=== PATIENT | male | born 1935 | race Caucasian/White ===

== ENCOUNTER 2020-09-22 05:25 | Inpatient (IN) | payer MEDICARE ==
[2020-09-22] VITALS (15 sets, daily range): BP systolic 39–179; BP diastolic 22–109
[~2020-09-22] VITALS: Ht 182.9 cm; Wt 83.5 kg
--- NOTE | 2020-09-22 05:26 | NUR ---
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 filed room air 02 70%, placed on cpap per ra improved to 90% , pt unable to answer questions at this time, noted tachypnic, diaphoretic. piv started, blood collected, ed md at bedside for eval
[2020-09-22] MEDS ORDERED: ACETAMINOPHEN 650 MG/SUPP.RECT RC ONE (05:34)
[2020-09-22 05:43] LABS: BASOPHILS % (AUTO) 0.2 % (0.0-2.0); EOSINOPHILS % (AUTO) 0.1 % (0.0-6.0); HEMATOCRIT 55 % (39-51); HEMOGLOBIN 18.1 g/dL (13.5-17.5); LYMPHOCYTES % (AUTO) 25.1 % (20.0-44.0); MEAN CORPUSCULAR HGB CONC 33 g/dl (31.0-36.0); MEAN CORPUSCULAR VOLUME 96 fL (80-96); MONOCYTES # (AUTO) 0.8 /CMM (0.1-1.30); NEUTROPHILS # (AUTO) 11.2 /CMM (1.8-8.9); NEUTROPHILS % (AUTO) 69.6 % (43.0-81.0); PLATELET COUNT (AUTO) 175 /CMM (150-450); RED BLOOD CELL COUNT(AUTO) 5.75 MIL/uL (4.5-6.0); WHITE BLOOD COUNT (AUTO) 16.1 K/uL (4.3-11.0)
--- NOTE | 2020-09-22 05:48 | NUR ---
pt placed on bipap per ed md order
--- NOTE | 2020-09-22 05:49 | NUR ---
pt noted with fever, cooling measure started
[2020-09-22 05:54] LABS: ABG BASE EXCESS -10.5 mmol/L; ABG OXYGEN SATURATION 89.9 % (92.0-98.5); ABG PCO2 27.5 mmHg (35.0-45.0); ABG PH 7.313 (7.350-7.450); ABG PO2 63.6 mmHg (75.0-100.0); AaDO2 621.9 mmHg; COHb 0.5 % (0.5-1.5); MetHb 0.5 % (0.0-1.5); SITE, ABG Right Radial; VENT MODE, BG ST 20/8 R20 100%
[2020-09-22 05:58] LABS: CALCIUM, SERUM 9.4 mg/dL (8.5-10.1); CARBON DIOXIDE 20 mmol/L (21-32); CHLORIDE 99 mmol/L (98-107); GLUCOSE 174 mg/dL (74-106); POTASSIUM 3.7 mmol/L (3.5-5.1); SODIUM SERUM 138 mmol/L (136-145); UREA NITROGEN, BLOOD 27 mg/dL (7-18)
[2020-09-22] MEDS ORDERED: PIPERACILLIN /TAZOBACTAM 3.375 G in IV D5W 50 ML IV ONE (06:00)
[2020-09-22] MEDS ORDERED: VANCOMYCIN HCL 1.25 GM in IV D5W 260 ML IV ONE (06:00)
[2020-09-22] MEDS ORDERED: NOREPINEPHRINE 4 MG/4 ML AMPUL IV ONE (06:03)
[2020-09-22] MEDS: ACETAMINOPHEN 650 MG/SUPP.RECT RC PRN (06:08)
[2020-09-22 06:10] LABS: ALANINE AMINOTRANSFERASE 27 U/L (12-78); ALBUMIN 3.9 g/dL (3.4-5.0); ALKALINE PHOSPHATASE 110 U/L (46-116); ASPARTATE AMINOTRANSFERASE 37 U/L (15-37); B-TYPE NATRIURETIC PEPTIDE 4379 PG/ML (0-125); BILIRUBIN,DIRECT 0.8 mg/dL (0.0-0.2); BILIRUBIN,TOTAL 2.7 mg/dL (0.2-1.0); TOTAL PROTEIN, SERUM 8.4 g/dL (6.4-8.2)
--- NOTE | 2020-09-22 06:11 | NUR ---
RT pt placed on bipap per md order. pt found on ems cpap, on 15 L. resp distress. rate in the 50s. placed on bipap. settings: 20/8 r 20 100%. bipap plugged in to red outlet. ambu bag at [facility]. abg done to assess baseline. abg results: ph 7.31 co2 27 o2 63 hco3 13 preparing to intubate.
[2020-09-22] MEDS: NOREPINEPHRINE 8 MG in IV NS 0.9% 242 ML IV PRN ×5 (06:18→17:19)
[2020-09-22] MEDS ORDERED: ONDANSETRON HCL/PF 4 MG/2 ML VIAL IVP PRN (06:30)
[2020-09-22] MEDS ORDERED: NOREPINEPHRINE 8 MG in IV NS 0.9% 250 ML IV ONE (06:30)
[2020-09-22] MEDS ORDERED: ETOMIDATE 2 MG/ML VIAL IV ONE (06:30)
[2020-09-22] MEDS ORDERED: ROCURONIUM BROMIDE 100 MG/10 ML VIAL IV ONE (06:30)
[2020-09-22] MEDS ORDERED: Z GUARD REMEDY 2 OZ OINT TP PRN (06:30)
[2020-09-22] MEDS ORDERED: DEXAMETHASONE SOD PHOSPHATE 10 MG/ML VIAL IV ONE (06:30)
[2020-09-22] MEDS ORDERED: MAGNESIUM HYDROXIDE 30 ML UDC PO PRN (06:30)
[2020-09-22] MEDS ORDERED: IV D5/0.45 NACL 1,000 ML IV PRN (06:30)
[2020-09-22] MEDS ORDERED: HEPARIN SODIUM, PORCINE 5000 UNITS/1 ML VIAL SQ SCH ×2 (06:30→12:00)
[2020-09-22] MEDS ORDERED: MORPHINE SULFATE INJ 2 MG/ML DISP.SYRIN IV PRN (06:30)
--- NOTE | 2020-09-22 06:45 | NUR ---
RT pt intubated post abg. vent settings: AC 22 550 100% +5. ett size 7.5 25@lip. vent plugged in to red outlet, ambu bag at [facility]. lung sounds clear throughout. no secretions via ett suctioned. unable to obtain spo2. notified tan robison.
[2020-09-22] MEDS ORDERED: IV NS 0.9% 500 ML BAG IV ONE (07:00)
--- NOTE | 2020-09-22 07:00 | NUR ---
RSI INITIATED ETOMIDATE 20MG AND ROCORUNIUM 70MG GIVEN IVP UNDER DIRECT SUPERVISION OF ER . 0628; 7.5 ET TUBE 25@LIP, PLACED BY DR. DELATORRE WITH RT, PLACEMENT CHECKED, XRAY ORDERED OG TUBE PLACED 65CM AT THE LIP F/C PLACED, 16F, DRAINING CLEAR YELLOW URINE
--- NOTE | 2020-09-22 07:02 | NUR ---
LAB CALLED REGARDING (+) COVID RESULT.
--- NOTE | 2020-09-22 07:10 | NUR ---
RIGHT IJ 3 LUMEN CENTRAL LINE PLACED BY DR. DELATORRE
[2020-09-22] MEDS ORDERED: PROPOFOL 100 ML ONE (07:12)
[2020-09-22] MEDS: PROPOFOL 100 ML IV PRN ×2 (07:18→23:26)
[2020-09-22 07:23] LABS: C-REACTIVE PROTEIN 16.1 mg/dL (0.0-0.9)
[2020-09-22] MEDS ORDERED: DEXAMETHASONE SOD PHOSPHATE 10 MG/ML VIAL ONE (07:24)
--- NOTE | 2020-09-22 07:31 | NUR ---
REPORT GIVEN TO JACE LIMA FOR SUKUMAR
[2020-09-22 07:33] LABS: BILIRUBIN,URINE NEGATIVE (NEGATIVE); COLOR,URINE YELLOW (YELLOW); LEUKOCYTE ESTERASE ,URINE TRACE (NEGATIVE); NITRITE, URINE NEGATIVE (NEGATIVE); PH,URINE 5.5 (5.0-8.0); PROTEIN,URINE TRACE mg/dl (NEGATIVE); UGLUCOSE NEGATIVE (NEGATIVE); UROBILINOGEN,URINE 0.2 EU/dL (0.2)
[2020-09-22 07:43] LABS: D-DIMER > 35.20 mg/L(FEU (0.17-0.50)
[2020-09-22 08:04] LABS: ABG BASE EXCESS -13.1 mmol/L; ABG PCO2 31.6 mmHg (35.0-45.0); ABG PH 7.231 (7.350-7.450); ABG PO2 68.6 mmHg (75.0-100.0); AaDO2 612.8 mmHg; COHb 0.2 % (0.5-1.5); MetHb 0.5 % (0.0-1.5); O2Hb 89.4 % (94.0-97.0); SITE, ABG Right Radial; VENT MODE, BG AC 22 550 100% +5
[2020-09-22] MEDS ORDERED: PIPERACILLIN /TAZOBACTAM 3.375 G VIAL IV ONE ×2 (08:13→13:04)
[2020-09-22 08:16] LABS: BACTERIA,URINE None seen /HPF (None Seen); SQUAMOUS EPITHELIAL CELL,UR Few /HPF (None Seen)
[2020-09-22] MEDS ORDERED: AMIO200T5 PO (08:26)
[2020-09-22] MEDS ORDERED: APIX5TAB PO (08:26)
[2020-09-22] MEDS ORDERED: ATOR20TA PO (08:26)
[2020-09-22] MEDS ORDERED: ALLO100T PO (08:26)
[2020-09-22] MEDS ORDERED: METO-357 PO (08:26)
[2020-09-22] MEDS ORDERED: BENA5TAB5 PO (08:26)
--- NOTE | 2020-09-22 09:41 | NUR ---
LACTIC ACID OF 5.8, MADE SOHAIL AWARE. AWAITING NEW ORDERS
[2020-09-22 09:53] LABS: MAGNESIUM 2.1 mg/dL (1.8-2.4)
[2020-09-22 10:03] LABS: THYROID STIMULATING HORMONE 3.007 uIU/mL (0.358-3.74)
--- NOTE | 2020-09-22 10:52 | NUR ---
SPOKE TO , [place], PER , PATIENT ON ELIQUIS 5MG BID, MADE SOHAIL AWARE. AWAITING FURTHER ORDER
--- NOTE | 2020-09-22 11:02 | NUR ---
RT AT BEDSIDE, CHANGED VENT SETTINGS TO AC 22, 02 100%, VT 550, PEEP 0.
[2020-09-22] MEDS ORDERED: APIXABAN 5 MG TABLET PO SCH (12:30)
[2020-09-22] MEDS ORDERED: APIXABAN 5 MG TABLET ONE (13:04)
[2020-09-22] MEDS: PIPERACILLIN /TAZOBACTAM 3.375 G in IV D5W 50 ML IV SCH ×2 (13:20→18:20)
--- NOTE | 2020-09-22 19:04 | NUR ---
CONSENT FOR COVID 19 PLASMA ALLOWED BY [place] LEONARD THROUGH PHONE. WITNESSED BY [place] BHATIA RN.
--- NOTE | 2020-09-22 19:16 | NUR ---
ASSUMED CARE. REPORT RECEIVED FROM AM SHIFT JACE LIMA. NOTED PT AWAKE ON DIPRIVAN DRIP 10MCG/KG/MIN INCREASED FOR SEDATION. LEVOPHED DRIP 0.5MCG/KG/MIN. PT TOLERATTING CURRENT VENT SETTING: AC-28, TV-550, FIO2-100%, PEEP-8, NO ACUTE DISTRESS NOTED, RESP EVEN AND UNLABORED. NOTED PT WITH OGT IN PLACE, NGT CONNECTED TO SUCTION WITH TEA COLOR GASTRIC JUICES NOTED. F/C 16FR IN PLACE AND DRAINING CLEAR YELLOW URINE. PT ON BILATERAL WRIST RESTRAINTS IN PLACE TO PREVENT PT FROM PULLING OUT ET-TUBE. PT REMAINS ON CARDIAC MONITORING, CONTINUOUS POX. WILL CONTINUE TO MONITOR PT CLOSELY
--- NOTE | 2020-09-22 19:24 | NUR ---
PLASMA AVAILABLE FOR THAWING PER MAIN LAB.
--- NOTE | 2020-09-22 19:47 | NUR ---
REPORT GIVEN TO ED RN FOR SUKUMAR
[2020-09-22] MEDS ORDERED: APIXABAN 2.5 MG TABLET PO SCH (20:00)
--- NOTE | 2020-09-22 20:45 | NUR ---
REPORT CALLED TO ACOUSTICAL INSTALLERJACE CARROLL. WILL TRANSPORT PT VIA ACLS PROTOCOL.
--- NOTE | 2020-09-22 20:49 | NUR ---
plasma started@2044, consents signed, verified with 2nd RN.
[2020-09-22] MEDS: NOREPINEPHRINE 32 MG in IV NS 0.9% 218 ML IV PRN (21:25)
--- NOTE | 2020-09-22 21:26 | NUR ---
pt transoported to icu
--- NOTE | 2020-09-22 21:30 | NUR ---
RT PT TRANSPORTED [facility] ICU 253. VENT PLUGGED INTO RED OUTLET, O2 CONNECTED TO WALL CONNECTION. WITH ALARMS ON AND AUDIBLE AND AMBU BAG AT BEDSIDE.
--- NOTE | 2020-09-22 21:40 | NUR ---
EMS MANAGER: RECEIVED S/P INTUBATED FROM ED. SEDATED ON 40MCG/KG/MIN, LEVOPHED AT MAX. DOSE RATE OF 1MCG/KG/MIN AND ONGOING CONVALESCENT PLASMA TRANSFUSION. VENT SETTINGS ORDERED. V-PACED ON THE WEB PRESS OPERATOR. HYPOTHERMIC AND EDGARDO HUGGER WILL BE APPLIED. F/C INTACT AND DRAINING ELLIE COLORED URINE TO GRAVITY. BILAT. SOFT WRIST RESTRAINTS IN PLACE TO PREVENT SELF EXTUBATION. WILL CONTINUE TO MONITOR.
[2020-09-22] MEDS ORDERED: PHENYLEPHRINE 10 MG/ML VIAL ONE (21:54)
[2020-09-22] MEDS: ATORVASTATIN 40 MG TABLET PO SCH (22:00)
[2020-09-22] MEDS: PHENYLEPHRINE 100 MG in IV NS 0.9% 240 ML IV PRN (22:04)
--- NOTE | 2020-09-22 22:30 | NUR ---
GRAIN MILLER HELPER: CONVALESCENT PLASMA TRANSFUSION COMPLETED WT NO ADVERSE REACTION. WILL CONTINUE TO MONITOR.
[2020-09-23] VITALS (96 sets, daily range): BP systolic 68–167; BP diastolic 34–97
[2020-09-23] MEDS ORDERED: PIPERACILLIN /TAZOBACTAM 3.375 G VIAL IV ONE ×2 (00:40→05:03)
[2020-09-23] MEDS: PIPERACILLIN /TAZOBACTAM 3.375 G in IV D5W 50 ML IV SCH ×4 (00:45→17:14)
[2020-09-23] MEDS ORDERED: NOREPINEPHRINE 4 MG/4 ML AMPUL IV ONE ×2 (03:52→03:55)
[2020-09-23] MEDS: NOREPINEPHRINE 32 MG in IV NS 0.9% 218 ML IV PRN ×3 (04:07→18:20)
[2020-09-23] MEDS: PROPOFOL 100 ML IV PRN ×5 (04:09→21:18)
[2020-09-23 05:06] LABS: BASOPHILS % (AUTO) 0.1 % (0.0-2.0); HEMATOCRIT 52 % (39-51); HEMOGLOBIN 17.4 g/dL (13.5-17.5); LYMPHOCYTES # (AUTO) 0.7 /CMM (0.8-4.8); LYMPHOCYTES % (AUTO) 3.4 % (20.0-44.0); MEAN CORPUSCULAR HGB CONC 34 g/dl (31.0-36.0); MEAN CORPUSCULAR VOLUME 96 fL (80-96); MONOCYTES # (AUTO) 1.3 /CMM (0.1-1.30); MONOCYTES % (AUTO) 5.9 % (2.0-12.0); NEUTROPHILS # (AUTO) 19.3 /CMM (1.8-8.9); NEUTROPHILS % (AUTO) 90.6 % (43.0-81.0); PLATELET COUNT (AUTO) 174 /CMM (150-450); RED BLOOD CELL COUNT(AUTO) 5.44 MIL/uL (4.5-6.0); WHITE BLOOD COUNT (AUTO) 21.3 K/uL (4.3-11.0)
[2020-09-23 05:16] LABS: CALCIUM, SERUM 8.6 mg/dL (8.5-10.1); CARBON DIOXIDE 18 mmol/L (21-32); CHLORIDE 103 mmol/L (98-107); CREATININE 2.6 mg/dL (0.6-1.3); GLUCOSE 226 mg/dL (74-106); POTASSIUM 4.2 mmol/L (3.5-5.1); SODIUM SERUM 137 mmol/L (136-145); UREA NITROGEN, BLOOD 44 mg/dL (7-18)
[2020-09-23 06:00] LABS: FERRITIN 4208 ng/mL (8-388)
--- NOTE | 2020-09-23 07:00 | NUR ---
SENIOR ENVIRONMENTAL PRACTICE LEADER: STILL ON DIPRIVAN AT 40MCG/KG/MIN. LEVOPHED AT 0.8MCG/KG/MIN, AND D5 1/2 NS AT 50ML/HR. MINIMAL BLEEDING NOTED DURING TRACHEAL SUCTIONING. ENDORSED TO JACE THAKUR TO OBTAIN ORDER FROM MD FOR NPO EXCEPT MEDS IF WANTS TO CONTINUE TO GIVE NON-IV MEDS PARTICULARLY ELIQUIS.
[2020-09-23] MEDS: VANCOMYCIN 1 GM in IV D5W 250 ML IV SCH (08:14)
[2020-09-23] MEDS: AMIODARONE HCL 200 MG TABLET PO SCH (08:44)
[2020-09-23] MEDS: DEXAMETHASONE SOD PHOSPHATE 10 MG/ML VIAL IV SCH (08:44)
[2020-09-23] MEDS: ALLOPURINOL 100 MG TABLET PO SCH ×3 (08:44→17:06)
[2020-09-23] MEDS: APIXABAN 5 MG TABLET PO SCH ×2 (08:45→17:00)
[2020-09-23] MEDS: METOPROLOL SUCCINATE 50 MG TAB.SR.24H PO SCH (08:49)
[2020-09-23 09:29] LABS: ABG BASE EXCESS -9.1 mmol/L; ABG OXYGEN SATURATION 99.5 % (92.0-98.5); ABG PCO2 29.9 mmHg (35.0-45.0); ABG PH 7.325 (7.350-7.450); ABG PO2 195.3 mmHg (75.0-100.0); AaDO2 487.8 mmHg; COHb 0.3 % (0.5-1.5); MetHb 0.3 % (0.0-1.5); O2Hb 98.9 % (94.0-97.0); PEEP,BG 8 cm H2O; SITE, ABG Left Femoral; VT, ABG 550 mL
[2020-09-23] MEDS: ACETAMINOPHEN 650 MG/SUPP.RECT RC PRN ×2 (12:09→18:19)
--- NOTE | 2020-09-23 17:00 | NUR ---
RN NOTES HELD PM ELIQUIS DUE TO SIGNS OF BLEEDING, NOTED WITH BLEEDING DURING SUCTIONING. WILL CONTINUE TO MONITOR.
[2020-09-23] MEDS: PHENYLEPHRINE 100 MG in IV NS 0.9% 240 ML IV PRN (17:40)
--- NOTE | 2020-09-23 19:00 | NUR ---
RECEIVED PT ON BED SEDATED ON ETT/VENT SETTING PER FIO2 100% SPO2 88% FULL CODE, TELE MONITOR READS VPACING 100%, HR 80'S HAVE RIGHT INTRAJUGULAR VEIN 3 LUMEN CENTRAL LINE WITH ONGOING DIPRIVAN @ 50MCG/KG/MIN, RENEE @ 1MCG/KG/MIN, LEVO @ 1MCG/KG/MIN INFUSING WELL WITH FOSTER CATHETER WITH YELLOW URINE DRAINING VIA GRAVITY HAVE RIGHT NOSTRILS NGTUBE CONNECTED TO SUCTION WITH BLACK COLOR RESIDUAL NOTED ALSO HAVE OGTUBE PLACEMENT WAS CHECKED, BED ON LOWEST POSITION AND LOCKED SIDE RAILS UP X2 WILL CONT TO MONITOR Addendum: 09/23/20 at 2347 by HARRY JORGENSEN RN PT TEMP [address]
--- NOTE | 2020-09-23 20:32 | NUR ---
RECEIVED PT INTUBATED 7.5 ETT SECURED AT 25CM LIP LINE. SX'D LARGE AMT OF FROTHY TINGED SECRETIONS. VENT ALARMS SET AND AUDIBLE. ETT CUFF CHECKED. CONTINUE TO MONITOR. Addendum: 09/23/20 at 2034 by MEL BAUER RT Amended: Links added.
[2020-09-23] MEDS ORDERED: VASOPRESSIN INJ 20 UNIT/ML VIAL ONE ×2 (21:26→22:07)
[2020-09-23] MEDS: VASOPRESSIN INJ 40 UNIT in IV NS 0.9% 38 ML IV PRN (21:33)
--- NOTE | 2020-09-23 21:45 | NUR ---
PT SBP IS ON LOW 80'S INFORMED ANITHA MANRIQUEZ SIMULATION ENGINEER ASSISTANT PROFESSOR OF MATHEMATICS WITH ORDER TO START VASOPRESSIN TO TITRATE PER PROTOCOL AND CONTACT FAMILY AND UPDATE THE FAMILY ABOUT THE SITUATION OF THE PT NOTED AND CARRIED OUT
[2020-09-23] MEDS: ATORVASTATIN 40 MG TABLET PO SCH (21:47)
--- NOTE | 2020-09-23 22:02 | NUR ---
CHARGE NURSE ED RN TALK TO [place] AND DISCUSS THE SITUATION OF THE PT AND SHE AGREE TO CHANGE THE CODE STATUS FROM FULL CODE TO DO NOT RESUSCITATE STATUS, FOLLOW NEEDS OF THE PT AND CHANGE THE CODE STATUS TO DO NOT RESUSCITATE
[2020-09-23] MEDS ORDERED: MEROPENEM 500 MG VIAL IV ONE (23:23)
--- NOTE | 2020-09-23 23:47 | NUR ---
PT ON BED SEADTED WITH DIPRIVAN 70MCG/KG/MIN ON ETT/VENT SETTING PER MD SPO2 ON 80'S FIO2 100% ON LEVOPHED 1 MCG/KG/MIN RENEE 2MCG/KG/MIN VASOPRESSIN 0.04 UNIT/MIN WITH BP 76/52 TEMP [address],PT IS DNR, WILL CONT TO MONITOR
[2020-09-24] VITALS (81 sets, daily range): BP systolic 58–123; BP diastolic 21–86
[2020-09-24] MEDS ORDERED: MEROPENEM 500 MG in IV NS 0.9% 50 ML IV ONE ×2
[2020-09-24] MEDS: PROPOFOL 100 ML IV PRN ×9 (00:07→20:45)
[2020-09-24] MEDS: NOREPINEPHRINE 32 MG in IV NS 0.9% 218 ML IV PRN ×4 (00:19→18:42)
[2020-09-24] MEDS: ACETAMINOPHEN 650 MG/SUPP.RECT RC PRN (00:31)
[2020-09-24] MEDS: VASOPRESSIN INJ 40 UNIT in IV NS 0.9% 38 ML IV PRN (01:52)
[2020-09-24] MEDS ORDERED: PHENYLEPHRINE 10 MG/ML VIAL ONE (01:58)
[2020-09-24] MEDS: PHENYLEPHRINE 100 MG in IV NS 0.9% 240 ML IV PRN ×4 (02:03→21:22)
[2020-09-24 05:19] LABS: BASOPHILS % (AUTO) 0.1 % (0.0-2.0); HEMATOCRIT 54 % (39-51); HEMOGLOBIN 17.4 g/dL (13.5-17.5); LYMPHOCYTES % (AUTO) 4.2 % (20.0-44.0); MEAN CORPUSCULAR HGB CONC 32 g/dl (31.0-36.0); MEAN CORPUSCULAR VOLUME 99 fL (80-96); MONOCYTES # (AUTO) 0.6 /CMM (0.1-1.30); MONOCYTES % (AUTO) 2.7 % (2.0-12.0); PLATELET COUNT (AUTO) 144 /CMM (150-450); RED BLOOD CELL COUNT(AUTO) 5.44 MIL/uL (4.5-6.0); WHITE BLOOD COUNT (AUTO) 22.6 K/uL (4.3-11.0)
--- NOTE | 2020-09-24 05:28 | NUR ---
PT STILL ON ETT/VENT SETTING PER MD WITH FIO2 100% SPO2 70% PT ON DNR, MD IS AWARE THAT BP AND SPO2 IS DROPPING WITH NO NEW ORDER BECAUSE PT ALREADY ON 3 PRESSOR AND ON MAX RATE ALREADY, WILL CONT TO MONITOR THE PT
[2020-09-24 05:37] LABS: ALANINE AMINOTRANSFERASE 474 U/L (12-78); ALBUMIN 2.5 g/dL (3.4-5.0); ALKALINE PHOSPHATASE 88 U/L (46-116); ASPARTATE AMINOTRANSFERASE 373 U/L (15-37); BILIRUBIN,TOTAL 1.5 mg/dL (0.2-1.0); CALCIUM, SERUM 8.1 mg/dL (8.5-10.1); CARBON DIOXIDE 16 mmol/L (21-32); CHLORIDE 101 mmol/L (98-107); CREATININE 4.9 mg/dL (0.6-1.3); GLUCOSE 130 mg/dL (74-106); MAGNESIUM 2.3 mg/dL (1.8-2.4); POTASSIUM 5.3 mmol/L (3.5-5.1); SODIUM SERUM 138 mmol/L (136-145); TOTAL PROTEIN, SERUM 6.9 g/dL (6.4-8.2); UREA NITROGEN, BLOOD 59 mg/dL (7-18)
[2020-09-24 05:49] LABS: PHOSPHORUS 8.4 mg/dL (2.5-4.9)
[2020-09-24] MEDS ORDERED: NOREPINEPHRINE 4 MG/4 ML AMPUL IV ONE (06:12)
--- NOTE | 2020-09-24 07:12 | NUR ---
MANAGEMENT ACCOUNTS MANAGER NOTES RECEIVED PT ON BED SEDATED ON ETT/VENT SETTING PER MD FIO2 100% SPO2 78%, DNR, TELE MONITOR READS VPACING 100%, HR 70'S HAVE RIGHT INTRAJUGULAR VEIN 3 LUMEN CENTRAL LINE WITH ONGOING DIPRIVAN @ 70MCG/KG/MIN, RENEE @ 3MCG/KG/MIN, LEVO @ 1MCG/KG/MIN, VASOPRESSIN @0.04 MCG/KG/MIN, INFUSING WELL WITH FOSTER CATHETER WITH YELLOW URINE DRAINING VIA GRAVITY HAVE RIGHT NOSTRILS NGTUBE CONNECTED TO SUCTION WITH BLACK COLOR RESIDUAL NOTED ALSO HAVE OGTUBE PLACEMENT WAS CHECKED, BED ON LOWEST POSITION AND LOCKED SIDE RAILS UP X2 WILL CONT TO MONITOR.
--- NOTE | 2020-09-24 07:30 | NUR ---
PT ON BED STILL ON ETT/VENT FIO2 100% SPO2 ON HIGH 70'S SUCTION WAS DONE, TEMP 99.[address] SBP ON 80'S STILL ON MAX PRESSOR OF LEVOPHED 1MCG/KG/MIN, RENEE 3 MCG/KG/MIN VASOPRESSIN 0.04UNIT/MIN INFUSING WELL VIA RIGHT INTERNAL JUGULAR 3 LUMEN CENTRAL LINE, STILL HAVE BLACK GASTRIC RESIDUAL VIA RIGHT NARES NGT CONNECTED TO LOW INTERMITTENT SUCTION BED ON LOWEST POSITION AND LOCKED SIDE RAILS UPX2 WILL ENDORSED TO AM SHIFT NURSE
[2020-09-24 07:50] LABS: ABG BASE EXCESS -17.7 mmol/L; ABG OXYGEN SATURATION 76.7 % (92.0-98.5); ABG PH 7.095 (7.350-7.450); ABG PO2 48.3 mmHg (75.0-100.0); AaDO2 626.7 mmHg; COHb 0.6 % (0.5-1.5); MetHb 0.3 % (0.0-1.5); PEEP,BG 8 cm H2O; SITE, ABG Right Radial; VT, ABG 550 mL
[2020-09-24] MEDS ORDERED: SODIUM BICARBONATE SYR 50 MEQ/50 ML DISP.SYRIN IV ONE (08:00)
[2020-09-24] MEDS: DEXAMETHASONE SOD PHOSPHATE 10 MG/ML VIAL IV SCH (08:07)
[2020-09-24] MEDS: ALLOPURINOL 100 MG TABLET PO SCH ×3 (08:07→16:55)
[2020-09-24] MEDS: APIXABAN 5 MG TABLET PO SCH (08:32)
[2020-09-24] MEDS: AMIODARONE HCL 200 MG TABLET PO SCH (08:32)
[2020-09-24] MEDS: METOPROLOL SUCCINATE 50 MG TAB.SR.24H PO SCH (08:32)
--- NOTE | 2020-09-24 09:00 | NUR ---
ICU NOTES HELD ELIQUIS, NOTED WITH BLOOD WHEN SUCTIONED. DR. JEAN NOTIFIED WITH ORDERS TO HOLD FOR NOW. WILL CONTINUE TO MONITOR.
[2020-09-24] MEDS: HYDROCORTISONE SOD SUCCINATE 100 MG/2 ML VIAL IV SCH ×3 (09:50→20:58)
[2020-09-24] MEDS ORDERED: FUROSEMIDE 100 MG/10 ML VIAL IV ONE (10:30)
[2020-09-24] MEDS: VANCOMYCIN 1 GM in IV D5W 250 ML IV SCH (10:54)
[2020-09-24] MEDS ORDERED: MEROPENEM 500 MG in IV NS 0.9% 50 ML IV SCH (12:00)
[2020-09-24] MEDS ORDERED: Sodium Bicarbonate 100 MEQ in IV D5W 1,000 ML IV PRN (12:00)
[2020-09-24] MEDS ORDERED: Sodium Bicarbonate 150 MEQ in IV D5W 1,000 ML IV PRN (12:28)
[2020-09-24 15:09] LABS: ABG BASE EXCESS -15.7 mmol/L; ABG OXYGEN SATURATION 89.6 % (92.0-98.5); ABG PH 7.149 (7.350-7.450); ABG PO2 64.9 mmHg (75.0-100.0); AaDO2 612.1 mmHg; COHb 0.4 % (0.5-1.5); MetHb 0.3 % (0.0-1.5); PEEP,BG 12 cm H2O; SITE, ABG Left Femoral; VT, ABG 550 mL
[2020-09-24] MEDS ORDERED: APIXABAN 5 MG TABLET PO SCH (17:00)
--- NOTE | 2020-09-24 20:00 | NUR ---
RECEIVED PT in BED SEDATED ON ETT/VENT, with o2 sat 80%. pt is not responsive to painful stimuli. bus monitor showing hr of 71.
--- NOTE | 2020-09-24 22:30 | NUR ---
pt pronounced at 2130 by ED BEASLEY charge nurse. post mortem care performed.
[2020-09-25] MEDS ORDERED: VANCOMYCIN 1 GM in IV D5W 250 ML IV SCH (21:00)
== END 2020-09-24 21:31 | disposition expired | DRG 871 ==
LOC: ER 05:26 → TRANSITION 08:36 → ICU 20:45
PROVIDERS: ADMIT Nurse Practitioner Acute Care
PROC: 5A1945Z Respiratory Ventilation, 24-96 Consecutive Hours (ICD-10-PCS; principal; 2020-09-22)
PROC: XW13325 Transfusion of Convalescent Plasma (Nonautologous) into Peripheral Vein, Percutaneous Approach, New Technology Group 5 (ICD-10-PCS; 2020-09-22)
PROC: 0BH18EZ Insertion of Endotracheal Airway into Trachea, Via Natural or Artificial Opening Endoscopic (ICD-10-PCS; 2020-09-22)
PROC: 05HM33Z Insertion of Infusion Device into Right Internal Jugular Vein, Percutaneous Approach (ICD-10-PCS; 2020-09-22)
DX: A41.89 Other specified sepsis (principal); U07.1 COVID-19; G93.41 Metabolic encephalopathy; I21.A1 Myocardial infarction type 2; J96.01 Acute respiratory failure with hypoxia; N17.0 Acute kidney failure with tubular necrosis; J12.82 Pneumonia due to coronavirus disease 2019; R65.21 Severe sepsis with septic shock; I50.43 Acute on chronic combined systolic (congestive) and diastolic (congestive) heart failure; E87.2 Acidosis; N39.0 Urinary tract infection, site not specified; D68.69 Other thrombophilia; I13.0 Hypertensive heart and chronic kidney disease with heart failure and stage 1 through stage 4 chronic kidney disease, or unspecified chronic kidney disease; E78.5 Hyperlipidemia, unspecified; I25.10 Atherosclerotic heart disease of native coronary artery without angina pectoris; I48.91 Unspecified atrial fibrillation; Z66 Do not resuscitate; Z87.891 Personal history of nicotine dependence; Z95.810 Presence of automatic (implantable) cardiac defibrillator; N18.9 Chronic kidney disease, unspecified; E80.6 Other disorders of bilirubin metabolism
CPT/HCPCS: 31720; 36415; 36600; 71045-TC; 76770-TC; 80048-TC; 80053-TC; 80061-TC; 80076-TC; 80202-TC; 81001; 82533; 82550-TC; 82728-TC; 82803-TC; 82962-TC; 83605-TC; 83615-TC; 83735-TC; 83880; 84100-TC; 84443-TC; 84484-TC; 85025-TC; 85378-TC; 85385-TC; 85730-TC; 86140; 86140-TC; 86850-TC; 87040-TC; 87081-TC; 87086-TC; 94002-TC; 94003-TC; 94760-TC; A6403; C1751; C9803; G0378; J1100; J1720; J1940; J2185; J2370; J2543; J3370; J3490; J7050; J7060; J7070; P9017-BL; U0003